=== PATIENT | female | born 2000 | race Two or more races ===

== ENCOUNTER 2024-01-26 13:11 | Emergency (ER) | payer OTHER ==
[~2024-01-26] VITALS: Ht 167.6 cm; Wt 50.8 kg
[2024-01-26] MEDS ORDERED: DIPHENHYDRAMINE HCL 50 MG/ML VIAL 1ML IM STA (17:56)
[2024-01-26] MEDS ORDERED: DIPHENHYDRAMINE HCL 50 MG/ML VIAL 1ML ONE (18:23)
== END 2024-01-26 18:32 | disposition home or self-care (01) ==
LOC: ER 13:13
DX: R53.81 Other malaise (principal); T78.40XA Allergy, unspecified, initial encounter; Z20.822 Contact with and (suspected) exposure to COVID-19

== ENCOUNTER 2024-02-06 15:20 | Outpatient (CLI) | payer OTHER | END 2024-02-06 15:24 | disposition home or self-care (01) | LOC: PRENATAL 15:20 | PROVIDERS: ATTEND Obstetrics & Gynecology Maternal & Fetal Medicine | DX: O35.3XX0 Maternal care for (suspected) damage to fetus from viral disease in mother, not applicable or unspecified (principal); O44.00 Complete placenta previa NOS or without hemorrhage, unspecified trimester; Z3A.23 23 weeks gestation of pregnancy ==

== ENCOUNTER 2024-05-07 19:09 | Inpatient (IN) | payer OTHER ==
[~2024-05-07] VITALS: Ht 167.6 cm; Wt 58.1 kg
[2024-05-07 20:07] VITALS: BP 112/75
[2024-05-07 20:57] LABS: HEMATOCRIT 30.5 % (36.0-45.00); MEAN CELL VOLUME 82.1 fL (80.00-100.00); MEAN CORPUSCULAR HGB CONC 32.9 g/dl (32.0-36.0); PLATELET COUNT 275 K/uL (150-450); RED BLOOD COUNT 3.72 M/uL (4.00-6.00); RED CELL DISTRIBUTION WIDTH 13.9 % (11.5-14.5)
[2024-05-07 20:57] LABS: PH,URINE 6.5 (5.0-8.0); URINE APPEARANCE Clear; URINE BILIRRUBIN Negative (NEGATIVE); URINE BLOOD Negative; URINE COLOR Yellow; URINE KETONE Negative (NEGATIVE); URINE LEUKOCYTE Moderate; URINE NITRATE Negative; URINE PROTEIN Negative (NEGATIVE); URINE UROBILINOGEN 0.2 E.U./dl
[2024-05-07] MEDS ORDERED: RINGERS SOLUTION,LACTATED 1,000 ML IV SCH (21:00)
[2024-05-07 21:01] LABS: URINE BACTERIA 606.8 uL (0.0-1933); URINE WBC 30.2 uL (0.0-23.2)
[2024-05-07 21:04] LABS: URINE GLUCOSE 100 MG/DL (NEGATIVE); URINE RBC 0.4 uL (0.0-20.8)
[2024-05-07 21:13] LABS: INR < 0.93; PARTIAL THROMBOPLASTIN TIME 23.6 SECONDS (22.0-34.0); PROTHROMBIN TIME 9.8 SECONDS (9.0-11.5)
[2024-05-07 21:20] LABS: ALBUMIN 2.9 gm/dL (3.4-5.0); BILIRUBIN TOTAL 0.26 mg/dL (0.3-1.2); CREATININE SERUM 0.65 mg/dL (0.55-1.02); GFR 111.06; GLOBULINA 3.7 G/DL (2.4-3.5); POTASSIUM 3.97 mEq/L (3.5-5.1); TOTAL PROTEIN 6.6 gm/dL (6.4-8.2)
[2024-05-07] MEDS ORDERED: PRENATAL TABLE1 EAC1 PO (21:36)
[2024-05-07 23:24] VITALS: BP 115/75
[2024-05-08 03:47] VITALS: BP 124/73
[2024-05-08 06:30] VITALS: BP 109/71; O2SAT 100
[2024-05-08 11:39] VITALS: BP 120/81
[2024-05-08 15:21] VITALS: BP 112/74
[2024-05-08] MEDS ORDERED: CEFAZOLIN SODIUM 1,000 MG VIAL IV SCH ×2 (19:31→20:00)
[2024-05-08] MEDS ORDERED: CEFAZOLIN SODIUM 1,000 MG VIAL ONE (19:57)
[2024-05-08 20:07] VITALS: BP 119/80
[2024-05-08 20:42] LABS: URINE PROT QUANT 24HR 10.2 MG/DL
[2024-05-08 20:45] LABS: URINE PROT QUANT 24 HR 265.2 MG/24HR (42-225)
[2024-05-08 23:20] VITALS: BP 104/68
[2024-05-09] MEDS ORDERED: CEFAZOLIN SODIUM 1,000 MG VIAL ONE ×2 (01:41→07:38)
[2024-05-09 04:04] VITALS: BP 110/70
[2024-05-09 07:16] VITALS: BP 115/73
[2024-05-09 11:39] VITALS: BP 101/63
[2024-05-09 15:14] VITALS: BP 118/80
== END 2024-05-09 17:40 | disposition home or self-care (01) | DRG 832 ==
LOC: LDR 19:09
PROVIDERS: ADMIT Obstetrics & Gynecology Obstetrics; ATTEND Obstetrics & Gynecology Obstetrics
PROC: 4A1HXCZ Monitoring of Products of Conception, Cardiac Rate, External Approach (ICD-10-PCS; principal; 2024-05-07)
PROC: BY4FZZZ Ultrasonography of Third Trimester, Single Fetus (ICD-10-PCS; 2024-05-07)
DX: O60.03 Preterm labor without delivery, third trimester (principal); O16.3 Unspecified maternal hypertension, third trimester; Z3A.36 36 weeks gestation of pregnancy

== ENCOUNTER 2024-05-28 04:32 | Inpatient (IN) | payer OTHER ==
[~2024-05-28] VITALS: Ht 167.6 cm; Wt 59.0 kg
[2024-05-28 04:09] VITALS: BP 132/82
[~2024-05-28 04:32] MED LIST: PRENATAL TABLE1 EAC1 PO
[2024-05-28] MEDS ORDERED: AMPICILLIN SODIUM 2,000 MG VIAL IV STA (04:57)
[2024-05-28] MEDS ORDERED: MEPERIDINE HCL/PF 50 MG/ML VIAL IM ONE (05:00)
[2024-05-28] MEDS ORDERED: RINGERS SOLUTION,LACTATED 1,000 ML IV SCH (05:00)
[2024-05-28] MEDS ORDERED: PROMETHAZINE HCL 25 MG/ML AMPUL IV ONE (05:00)
[2024-05-28 06:10] VITALS: BP 138/85
[2024-05-28 06:13] LABS: HEMATOCRIT 34.1 % (36.0-45.00); HEMOGLOBIN 11.4 g/dL (12.0-15.00); MEAN CELL VOLUME 79.3 fL (80.00-100.00); MEAN CORPUSCULAR HEMOGLOBIN 26.6 pg (27.00-32.0); MEAN CORPUSCULAR HGB CONC 33.5 g/dl (32.0-36.0); PLATELET COUNT 308 K/uL (150-450)
[2024-05-28 06:18] LABS: PH,URINE 6.5 (5.0-8.0); URINE APPEARANCE Clear; URINE BILIRRUBIN Negative (NEGATIVE); URINE BLOOD Negative; URINE COLOR Yellow; URINE GLUCOSE Negative (NEGATIVE); URINE KETONE Negative (NEGATIVE); URINE LEUKOCYTE Moderate; URINE NITRATE Negative; URINE UROBILINOGEN 0.2 E.U./dl
[2024-05-28 06:22] LABS: URINE BACTERIA 2121.1 uL (0.0-1933); URINE RBC 2.3 uL (0.0-20.8); URINE WBC 329.7 uL (0.0-23.2)
[2024-05-28 06:45] LABS: ALBUMIN 3.2 gm/dL (3.4-5.0); BILIRUBIN TOTAL 0.37 mg/dL (0.3-1.2); CALCIUM 9.1 mg/dL (8.5-10.1); CREATININE SERUM 0.78 mg/dL (0.55-1.02); GFR 89.99; GLOBULINA 4.2 G/DL (2.4-3.5); POTASSIUM 3.97 mEq/L (3.5-5.1); TOTAL PROTEIN 7.4 gm/dL (6.4-8.2)
[2024-05-28 06:47] LABS: INR < 0.93; PARTIAL THROMBOPLASTIN TIME 24.2 SECONDS (22.0-34.0); PROTHROMBIN TIME 9.8 SECONDS (9.0-11.5)
[2024-05-28 07:08] LABS: URINE CAST 0.29 uL (0.0-1.40); URINE PROTEIN 100 (NEGATIVE)
[2024-05-28 07:10] LABS: URINE YEAST FEW /hpf
[2024-05-28 07:41] VITALS: BP 117/65; BP 141/77
[2024-05-28] MEDS ORDERED: TERBUTALINE SULFATE 1 MG/ML AMPUL ONE (08:14)
[2024-05-28] MEDS ORDERED: TERBUTALINE SULFATE 1 MG/ML AMPUL SUBCUTANEO SCH (08:45)
[2024-05-28] MEDS ORDERED: AMPICILLIN SODIUM 1,000 MG VIAL IV SCH ×2 (09:00→13:00)
[2024-05-28] MEDS ORDERED: LIDOCAINE HCL 1% 10ML VIAL ONE (09:01)
[2024-05-28] MEDS ORDERED: OXYTOCIN 20 UNITS/1000ML RL PIGGYBAG IV ONE (09:01)
[2024-05-28] MEDS ORDERED: ERYTHROMYCIN BASE OPHT 1GM EACH TUBE OP ONE ×2 (09:01→10:43)
[2024-05-28] MEDS ORDERED: CHLORHEXIDINE GLUCONATE 120 ML BOTTLE TOP ONE (09:01)
[2024-05-28] MEDS ORDERED: OXYTOCIN 20 UNITS/500ML RL PIGGYBAG IV ONE ×2 (09:33→09:45)
[2024-05-28] MEDS ORDERED: OXYTOCIN 12,500 ML IV SCH (10:00)
[2024-05-28] MEDS ORDERED: OXYTOCIN 500 ML IV SCH (10:15)
[2024-05-28] MEDS ORDERED: OXYTOCIN 10 UNITS/ML VIAL ONE (10:43)
[2024-05-28] MEDS ORDERED: MORPHINE SULFATE 4 MG/ML CARTRIDGE IV PRN (12:00)
[2024-05-28] MEDS ORDERED: MORPHINE SULFATE 2 MG/ML CARTRIDGE IV ONE (12:50)
[2024-05-28] MEDS ORDERED: AMPICILLIN SODIUM 1,000 MG VIAL ONE ×2 (13:29→17:33)
[2024-05-28 18:02] VITALS: BP 140/85
[2024-05-29] VITALS: BP 117/76
[2024-05-29] MEDS ORDERED: OxyCODONE HCL/APAP UD (PERCOCET) PO PRN (08:30)
[2024-05-29] MEDS ORDERED: HYDROCORTISONE ACETATE 25 MG/SUPP.RECT SUPP.RECT RECTAL ONE (08:30)
[2024-05-29 09:00] VITALS: BP 136/84
[2024-05-29] MEDS ORDERED: HYDROCORTISONE ACETATE 25 MG/SUPP.RECT SUPP.RECT RECTAL NR (13:15)
[2024-05-29 16:12] VITALS: BP 137/88
[2024-05-30 01:42] VITALS: BP 118/78
[2024-05-30 08:47] VITALS: BP 129/80
[2024-05-30 16:46] VITALS: BP 123/86
[2024-05-31 01:15] VITALS: BP 125/89
[2024-05-31 08:41] VITALS: BP 117/78
[2024-05-31] MEDS ORDERED: IBUprofen 800 MG TABLET PO PRN (13:15)
[2024-05-31] MEDS ORDERED: HYDROCORTISONE 2.5% 30 GM TUBE RECTAL PRN (13:15)
== END 2024-05-31 14:19 | disposition home or self-care (01) | DRG 786 ==
LOC: LDR → OB/GYN 04:32 → EDBD 04:32 → O/R 11:18 → OB/GYN 14:51
PROVIDERS: ADMIT Obstetrics & Gynecology Obstetrics; ATTEND Obstetrics & Gynecology Obstetrics
PROC: 4A1HXCZ Monitoring of Products of Conception, Cardiac Rate, External Approach (ICD-10-PCS; 2024-05-28)
PROC: 10D00Z1 Extraction of Products of Conception, Low, Open Approach (ICD-10-PCS; principal; 2024-05-28 10:45)
DX: O62.0 Primary inadequate contractions (principal); O41.1430 Placentitis, third trimester, not applicable or unspecified; O34.211 Maternal care for low transverse scar from previous cesarean delivery; Z3A.39 39 weeks gestation of pregnancy; Z37.0 Single live birth; Z20.822 Contact with and (suspected) exposure to COVID-19